=== PATIENT | female | born 1975 | race Caucasian/White ===

== ENCOUNTER 2019-02-14 00:37 | Emergency (ER) | payer BC ==
[~2019-02-14] VITALS: Ht 170.2 cm; Wt 72.7 kg
[2019-02-14 00:53] VITALS: Ht 170.2 cm; Wt 72.7 kg
[2019-02-14] MEDS ORDERED: BYSTOLIC5 MG PO (00:54)
[2019-02-14] MEDS ORDERED: IBUPROFEN800 MG PO (03:05)
[2019-02-14 03:19] VITALS: BP 133/95
== END 2019-02-14 03:19 | disposition home or self-care (01) ==
LOC: D.ER 00:37
DX: M54.5 Low back pain (principal); I10 Essential (primary) hypertension; Z72.0 Tobacco use; R53.81 Other malaise